=== PATIENT | female | born 1960 | race Caucasian/White ===

== ENCOUNTER → 2020-03-10 | Outpatient (CLI) | payer OTHER ==
[2020-03-10 14:44] LABS: Chol/HDL Ratio 4.48; LDL Cholesterol,Calculated 131.2 mg/dL (0.0-131.0); VLDL Calculation 28.8 mg/dL (5.00-40.00)
== END | disposition home or self-care (01) ==
LOC: LABWHC1 09:07
PROVIDERS: ATTEND Internal Medicine Cardiovascular Disease
DX: E78.2 Mixed hyperlipidemia (principal)
CPT/HCPCS: 36415; 80061; 84450; 84460

== ENCOUNTER 2020-04-25 06:32 | Day surgery (SDC) | payer OTHER ==
[2020-04-21 08:39] VITALS: BMI 30.6
[~2020-04-25 06:32] MED LIST: ALPRAZolam 0.25 MG TAB PO PRN; ALPRAZolam 0.5 MG TAB PO PRN; NITROGLYCERIN SL TABS 0.4 MG TAB SUBLINGUAL PRN
[2020-04-25] MEDS ORDERED: ASPIRIN 81 MG ONE (06:40)
[2020-04-25] MEDS: SODIUM CHLORIDE 0.9% 1,000 ML in EMPTY BAG 1 BAG IV ONE ×2 (06:43→15:31)
[2020-04-25] MEDS ORDERED: ASPIRIN 325 MG TAB PO ONE (07:00)
[2020-04-25] MEDS ORDERED: ATORVASTATIN 80 MG TAB PO ONE (07:00)
[2020-04-25] MEDS ORDERED: HEPARIN SODIUM,PORCINE 2,500 UNIT in SODIUM CHLORIDE 0.9% 250 ML IRRIGATION PRN (07:00)
[2020-04-25] MEDS ORDERED: HEPARIN SODIUM,PORCINE 10,000 UNIT in SODIUM CHLORIDE 0.9% 1,000 ML IRRIGATION PRN (07:00)
[2020-04-25 07:10] LABS: Basophils # (A) 0.1 k/uL (0-0.2); Basophils % (A) 1 %; Eosinophils # (A) 0.4 k/uL (0-0.7); Eosinophils % (A) 6 %; HCT 40.6 % (34.0-46.0); HGB 13.2 gm/dL (11.4-16.0); Lymphocytes # (A) 2.5 k/uL (1.0-4.8); Lymphocytes % (A) 39 %; MCH 31.3 pg (25.0-35.0); MCHC 32.4 g/dL (31.0-37.0); MCV 96.4 fL (80.0-100.0); Mean Platelet Volume 6.7; Monocytes # (A) 0.4 k/uL (0-1.0); Monocytes % (A) 5 %; Neutrophils % (A) 46 %; Platelet Count 314 k/uL (150-450); RBC 4.21 m/uL (3.80-5.40); RDW 13.4 % (11.5-15.5); WBC 6.5 k/uL (3.8-10.6)
[2020-04-25 07:20] LABS: African American GFR (CKD) >90 (>60 ml/min/1.73 sqM); Anion Gap 6 mmol/L; Blood Urea Nitrogen 14 mg/dL (7-17); Calcium 9.6 mg/dL (8.4-10.2); Carbon Dioxide 26 mmol/L (22-30); Chloride 109 mmol/L (98-107); Glucose 109 mg/dL (74-99); Non-African American GFR(CKD) >90 (>60 ml/min/1.73 sqM); Potassium 4.5 mmol/L (3.5-5.1); Sodium 141 mmol/L (137-145)
[2020-04-25] MEDS ORDERED: LIDOCAINE 1% INJ 10MG/ML (20 ML MDV) ONE (07:21)
[2020-04-25] MEDS ORDERED: fentaNYL (PF) 50 MCG/ML 2 ML AMP ONE (07:22)
[2020-04-25] MEDS: fentaNYL (PF) 50 MCG/ML 2 ML AMP IV ONE ×4 (07:34→08:34)
[2020-04-25] MEDS: MIDAZOLAM 2 MG/2 ML VIAL IV ONE ×4 (07:34→08:47)
[2020-04-25] MEDS ORDERED: LIDOCAINE 1% INJ 10MG/ML (20 ML MDV) SQ ONE (07:35)
[2020-04-25] MEDS ORDERED: NITROGLYCERIN OINT 1 INCH/GM PACKET TOPICAL ONE (07:49)
[2020-04-25] MEDS ORDERED: BIVALIRUDIN 250 MG VIAL IV ONE (07:50)
[2020-04-25] MEDS ORDERED: SODIUM CHLORIDE 0.9% 50 ML BAG ONE (07:50)
[2020-04-25] MEDS ORDERED: BIVALIRUDIN BOLUS 250 MG/50 ML IV ONE (08:00)
[2020-04-25] MEDS ORDERED: BIVALIRUDIN 250 MG in SODIUM CHLORIDE 0.9% 50 ML IV ONE (08:01)
[2020-04-25] MEDS ORDERED: PRASUGREL 10 MG TAB ONE (08:09)
[2020-04-25] MEDS ORDERED: PRASUGREL 10 MG TAB PO ONE ×2 (08:12)
[2020-04-25] MEDS ORDERED: IOPAMIDOL-370 125ML BTL INJ ONE (08:18)
--- NOTE | 2020-04-25 08:24 | CC ---
CARDIAC CATHETERIZATION REPORT INDICATION: Unstable angina in a patient with known CAD, status post prior angioplasty of LAD. PROCEDURE NOTE: After obtaining informed consent, left heart catheterization and coronary angiogram are performed via the right femoral artery using standard Kod[employer] catheters. Patient tolerated the procedure well without any obvious immediate complication. He had mild chest discomfort at the end of the procedure. EKG did not show any significant ischemic changes. FINDINGS: 1. HEMODYNAMICS: Left ventricular end-diastolic pressure is 24 mm. There is no significant gradient across the aortic valve. 2. LEFT VENTRICULOGRAM: Left ventriculogram is not performed. 3. ANGIOGRAPHIC DATA: Left Main Coronary Artery: Left main coronary artery is a normal-sized vessel and is free of stenosis. Divides into left anterior descending coronary artery and circumflex coronary artery. LAD was previously stented in the proximal part. There is in-stent restenosis of about 70%. The circumflex coronary artery is a large dominant vessel that shows a focal 95% stenosis. Right coronary artery is a small nondominant vessel with atherosclerotic plaque in the proximal portion. CONCLUSION: Two vessel coronary artery disease as described above with a 70% in-stent restenosis in the proximal LAD and a 95% stenosis involving large dominant circumflex coronary artery. PLAN: I am going to ask Dr. Rodríguez the intervention who performed her previous angioplasty to evaluate the patient and advise angioplasty. MMODL / IJN: [id number] /
[2020-04-25] MEDS ORDERED: HYDROmorphone 0.5 MG/0.5 ML SYRINGE IVP ONE (08:25)
[2020-04-25] MEDS ORDERED: IOPAMIDOL-370 100ML BTL INJ ONE (08:42)
[2020-04-25] MEDS ORDERED: MAG HYDROX/AL HYDROX/SIMETH 30 ML CUP PO PRN (08:50)
[2020-04-25] MEDS ORDERED: NITROGLYCERIN SL TABS 0.4 MG TAB SUBLINGUAL PRN ×2 (08:50)
[2020-04-25] MEDS ORDERED: ZOLPIDEM 5 MG TAB PO PRN (08:50)
[2020-04-25] MEDS ORDERED: ATROPINE SULFATE 0.1 MG/ML 10ML SYRINGE IV PRN (08:50)
[2020-04-25] MEDS ORDERED: RX INFO: IV CONTRAST WAS GIVEN 1 EACH MISC MISCELLANE PRN (08:50)
[2020-04-25] MEDS ORDERED: lisinopriL 10 MG TAB PO SCH ×2 (09:00→21:00)
[2020-04-25] MEDS ORDERED: ISOSORBIDE MONONITRATE ER 30 MG TAB.ER.24H PO SCH (09:00)
[2020-04-25] MEDS ORDERED: MULTIVITAMINS, THERA 1 EACH TAB PO SCH ×2 (09:00→21:00)
[2020-04-25] MEDS ORDERED: ASPIRIN 81 MG PO SCH (09:00)
[2020-04-25] MEDS ORDERED: MELOXICAM 7.5 MG TAB PO SCH ×2 (09:00→21:00)
[2020-04-25] MEDS ORDERED: SODIUM CHLORIDE 0.9% 1,000 ML IV SCH (09:00)
--- NOTE | 2020-04-25 09:38 | PTCA ---
PERCUTANEOUSTRANS CORORONARY ANGIOGRAPHY DATE OF SERVICE: April 25, 2020 PERFORMING PHYSICIAN: Griffin Rodríguez MD. PROCEDURE PERFORMED: 1. Successful stenting of the proximal left circumflex coronary artery using 4.0 x 18 mm Xience LUZ MARINA with an excellent angiographic results and reduction of stenosis from 99% to 0%. 2. Successful stenting of the proximal left anterior descending artery using 3.25 x 12 mm and 3.0 x 8 mm Xience drug-eluting stent with an excellent angiographic results. 3. Right common femoral artery . INDICATION: This is a very pleasant 59-year-old female patient who sees Dr. Bryant in the office as an outpatient with history of coronary artery disease and prior stenting of the LAD who was experiencing symptoms of chest discomfort and underwent a heart catheterization by Dr. Bryant and that revealed critical disease involving the proximal left circumflex with severe in-stent restenosis involving the LAD. APPROACH: Right common femoral artery. COMPLICATION: None. LEVEL OF SEDATION: Moderate with sedation length of the 43 minutes. PROCEDURE DESCRIPTION: Please refer to diagnostic heart catheterization that was performed by Dr. Bryant. Anticoagulation was initiated by Angiomax. Subsequently, the left main was engaged using an XP35 guide. Subsequently I did wire the left circumflex using the Whisper wire. Predilatation was achieved using 3.0 x 12 mm balloon before I deployed 4.0 x 12 mm Xience drug-eluting stent where the stent was positioned under fluoroscopy guidance and deployed under its nominal pressure. The following angiogram showed excellent angiographic results. For the LAD, I did wire the LAD using the same wire. Initially I tried to pre-dilate using an AngioSculpt, but the AngioSculpt did not cross the lesion. Because of that, I dilated using the same balloon I used for the circumflex, which was 3.0 x 12 and then I deployed 3.25 x 15 mm Xience drug-eluting stent where the stent was positioned under fluoroscopy guidance and deployed under 16 atmospheres for 20 seconds. The following angiogram showed what seems to be a proximal edge dissection which I covered using 8 mm x 3 mm stent. The following angiogram showed excellent angiographic results and the procedure was completed without any complication. POSTPROCEDURE MANAGEMENT: 1. Dual anti-platelet therapy. 2. Risk factor modifications. 3. Follow up with the patient. MMODL / IJN: [id number] /
[2020-04-25] MEDS: carvediloL 12.5 MG TAB PO SCH ×2 (12:06→21:12)
[2020-04-25 12:42] VITALS: RESP 16
[2020-04-25] MEDS ORDERED: ATORVASTATIN 40 MG TAB PO SCH (21:00)
[2020-04-26] MEDS: carvediloL 12.5 MG TAB PO SCH (06:34)
[2020-04-26 07:42] LABS: African American GFR (CKD) >90 (>60 ml/min/1.73 sqM); Anion Gap 6 mmol/L; Blood Urea Nitrogen 11 mg/dL (7-17); Calcium 9.7 mg/dL (8.4-10.2); Carbon Dioxide 31 mmol/L (22-30); Chloride 104 mmol/L (98-107); Glucose 106 mg/dL (74-99); Non-African American GFR(CKD) >90 (>60 ml/min/1.73 sqM); Potassium 4.2 mmol/L (3.5-5.1); Sodium 141 mmol/L (137-145)
[2020-04-26 07:44] LABS: Basophils # (A) 0.1 k/uL (0-0.2); Basophils % (A) 1 %; Eosinophils # (A) 0.3 k/uL (0-0.7); Eosinophils % (A) 5 %; HGB 13.9 gm/dL (11.4-16.0); Lymphocytes # (A) 2.2 k/uL (1.0-4.8); Lymphocytes % (A) 31 %; MCH 31.3 pg (25.0-35.0); MCHC 32.2 g/dL (31.0-37.0); MCV 97.2 fL (80.0-100.0); Mean Platelet Volume 6.4; Monocytes # (A) 0.4 k/uL (0-1.0); Monocytes % (A) 5 %; Neutrophils # (A) 3.9 k/uL (1.3-7.7); Neutrophils % (A) 55 %; Platelet Count 279 k/uL (150-450); RBC 4.42 m/uL (3.80-5.40); RDW 12.9 % (11.5-15.5); WBC 7.1 k/uL (3.8-10.6)
[2020-04-26 08:13] VITALS: BP 149/94; PULSE 81; TEMP 98.1
--- NOTE | 2020-04-26 08:14 | DS ---
DISCHARGE SUMMARY DATE OF ADMISSION: 04/25/2020. DATE OF DISCHARGE: 04/26/2020. FINAL DIAGNOSIS: Unstable angina. PROCEDURES PERFORMED: 1. Left heart catheterization. 2. PTCA with stent placement of LAD and circumflex coronary artery. HOSPITAL COURSE: This is a 59-year-old lady with history of known coronary artery disease, status post prior angioplasty of LAD, who presented to me with symptoms of unstable angina and was advised to undergo cardiac catheterization. The cardiac catheterization revealed restenosis involving LAD and a critical stenosis involving circumflex coronary artery. She underwent angioplasty with stent placement of both. CONDITION AT THE TIME OF DISCHARGE: She is doing well and is free of symptoms. PHYSICAL EXAMINATION: On exam, vital signs are stable. Chest exam reveals good air entry bilaterally. Heart exam reveals first and second heart sounds. No gallop. Groin is free of bleeding, bruit, hematoma. Foot pulses are intact. LABS: Labs show a hemoglobin of 13.9, platelet count of 279. Potassium is 4.2. Creatinine is 0.6. EKG shows normal sinus rhythm and is within normal limits. FOLLOWUP: Patient will be followed up in my office in a week's time. DISCHARGE MEDICATIONS: Discharge medications include: 1. Effient 10 mg daily. 2. Sublingual nitroglycerin p.r.n. basis. 3. Imdur 30 mg daily. 4. Coreg 12.5 b.i.d. 5. Aspirin. 6. Lisinopril. 7. Atorvastatin. MMODL / IJN: [id number] /
[2020-04-26] MEDS ORDERED: PRASUGREL 10 MG TAB PO SCH (09:00)
== END 2020-04-26 08:14 | disposition home or self-care (01) ==
LOC: CATHCVL 06:32 → 1SOBS 08:59 → CATHCVL 04-26 08:14
PROVIDERS: ATTEND Internal Medicine Cardiovascular Disease
DX: I25.110 Atherosclerotic heart disease of native coronary artery with unstable angina pectoris (principal); T82.855A Stenosis of coronary artery stent, initial encounter; E78.5 Hyperlipidemia, unspecified; Z72.0 Tobacco use; Z79.1 Long term (current) use of non-steroidal anti-inflammatories (NSAID); Z79.82 Long term (current) use of aspirin; Z79.899 Other long term (current) drug therapy; Z88.1 Allergy status to other antibiotic agents; Z88.0 Allergy status to penicillin
CPT/HCPCS: 93458; 80048 ×2; 85025 ×2; C9600 ×2; C1769 ×3; C1760; C1725 ×2; C1887; C1894; C1874; J2250; J2001; J3010; J0583; J1170; Q9967 ×2; 93005

== ENCOUNTER → 2022-01-03 | Outpatient (CLI) | payer OTHER ==
[2022-01-03 14:28] LABS: African American GFR (CKD) >90 (>60 ml/min/1.73 sqM); Anion Gap 8 mmol/L; Blood Urea Nitrogen 16 mg/dL (7-17); Calcium 9.1 mg/dL (8.4-10.2); Carbon Dioxide 26 mmol/L (22-30); Chloride 106 mmol/L (98-107); Glucose 84 mg/dL (74-99); Non-African American GFR(CKD) >90 (>60 ml/min/1.73 sqM); Potassium 4.4 mmol/L (3.5-5.1); Sodium 140 mmol/L (137-145)
[2022-01-03 18:40] LABS: Chol/HDL Ratio 4.28 Ratio
--- NOTE | 2022-01-05 09:02 | CT ---
EXAMINATION TYPE: CT angio neck DATE OF EXAM: 01/03/2022 HISTORY: Carotid stenosis COMPARISON: None CT DLP: 337 mGycm. Automated Exposure Control for Dose Reduction was Utilized. TECHNIQUE: CTA scan of the head and neck is performed with IV Contrast, patient injected with 50 mL of Isovue 370, axial images are obtained, coronal and sagittal reformatted images are reviewed. 3D re constructed images are created on an independent workstation and reviewed. FINDINGS: Left carotid artery: There is extensive atherosclerotic plaque involving the left carotid bifurcation with a greater than 80% stenosis suspected. There is distal enhancement. To the level of the caverno us segment. Atherosclerotic plaque involving the distal margin of the left common carotid artery also noted. Right carotid artery: Right common carotid artery also demonstrates mild plaque distally with additional plaque involving t he carotid bulb and proximal right ICA with stenosis measuring 50% or less. Vertebral arteries are fairly symmetric in size and patent bilaterally. Visualized portion of the melisa tebral basilar system is patent. There is less portions of the aortic arch demonstrate atherosclerotic change with the standard three- vessel anatomy. There is mild atherosclerotic plate involving the origins of the great vessels. Subcl luisa arteries patent as visualized IMPRESSION: 1. Severe 80% or greater stenosis proximal left ICA. 2. No significant right ICA stenosis NASCET criteria was used in interpretation of this exam?
== END | disposition home or self-care (01) ==
LOC: RADCTMAIN 13:25
PROVIDERS: ATTEND Internal Medicine Cardiovascular Disease
DX: I65.22 Occlusion and stenosis of left carotid artery (principal); I10 Essential (primary) hypertension; E78.2 Mixed hyperlipidemia
CPT/HCPCS: 80061; 80048; 83735; 70498; 36415; Q9967